=== PATIENT | male | born 1950 | race Caucasian/White ===

== ENCOUNTER 2017-02-09 13:06 | Inpatient (IN) | payer OTHER ==
[~2017-02-09] VITALS: Ht 154.9 cm; Wt 73.5 kg
--- NOTE | 2017-02-09 13:06 | NUR ---
Patient was BIBA and taken to bed 10 via gurney per EMS.
[2017-02-09 13:09] VITALS: BP 111/71
[2017-02-09] MEDS ORDERED: NACL 0.9% 1,000 ML IV ONE (13:12)
--- NOTE | 2017-02-09 13:29 | NUR ---
XRAY AT BEDSIDE.
[2017-02-09 13:45] LABS: MEAN CORPUSCULAR HEMOGLOBIN 32 pg (27-31); MEAN CORPUSCULAR HGB CONC 34 g/dL (33-37); MEAN CORPUSCULAR VOLUME 95 fL (80-94)
[2017-02-09 13:49] LABS: HEMOGLOBIN 14.6 g/dL (12.0-18.0); PLATELET COUNT (AUTO) 111 K/uL (140-450); RED BLOOD CELL COUNT(AUTO) 4.53 MIL/uL (4.20-6.10); RED CELL DISTRIBUTION WIDTH 18.5 % (11.6-13.7); WHITE BLOOD COUNT (AUTO) 7.5 K/uL (4.8-10.8)
--- NOTE | 2017-02-09 13:57 | NUR ---
PATIENT IS A 66 YO MALE BIB EMS FROM HOME FOR ABDOMINAL PAIN, PATIENT HAS A HX OF LIVER CA. HE IS AWAKE AND ALERT ON ARRIVAL. VERY JAUNDICED SKIN AND EYES. IV ESTABLISHED PLACED ON MONITOR SIDE RAILS UP.
[2017-02-09 14:00] LABS: PROTHROMBIN TIME 12.7 secs (10.8-13.4)
[2017-02-09 14:02] LABS: LYMPHOCYTES % (MANUAL) 10 % (20-46); MONOCYTES % (MANUAL) 4 % (5-12)
[2017-02-09] MEDS ORDERED: PIPERACILLIN/TAZOBACTAM 3.375 GM in DEXTROSE 5% 50 ML IV ONE (14:25)
[2017-02-09] MEDS ORDERED: NACL 0.9% 1,500 ML IV ONE (14:25)
[2017-02-09 14:42] LABS: ALBUMIN 1.4 g/dL (3.4-5.0); ANION GAP 11.1 (8-16); CARBON DIOXIDE 28.3 mmol/L (21-32); CREATININE 1.7 mg/dL (0.7-1.3); POTASSIUM 3.4 mmol/L (3.5-5.1); TOTAL BILIRUBIN 29.2 mg/dL (0.0-1.0)
[2017-02-09] MEDS ORDERED: PIPERACILLIN/TAZOBACTAM 3.375 GM VIAL IV ONE (14:43)
[2017-02-09] MEDS ORDERED: OMEP20TC12 PO (14:50)
[2017-02-09] MEDS ORDERED: MIRABULK PO (14:50)
[2017-02-09] MEDS ORDERED: CYAN500T55 SL (14:50)
[2017-02-09] MEDS ORDERED: ACET-2858 PO (14:50)
[2017-02-09] MEDS ORDERED: DOCU-299 PO (14:50)
[2017-02-09] MEDS ORDERED: LACT10SO1 PO (14:50)
[2017-02-09] MEDS ORDERED: LEVOFLOXACIN 750 MG/D5W PREMIX 150 ML IV ONE (14:50)
[2017-02-09] MEDS ORDERED: NACL 0.9% 1,000 ML IV SCH (15:14)
[2017-02-09] MEDS ORDERED: LORazepam 2 MG/ML VIAL IVP PRN (15:15)
[2017-02-09] MEDS ORDERED: ALBUTEROL 0.083% 2.5 MG/3 ML NEBU IH PRN (15:15)
[2017-02-09] MEDS ORDERED: MORPHINE SULFATE 4 MG/ML SYR IVP PRN (15:15)
--- NOTE | 2017-02-09 15:24 | NUR ---
PATIENT ADMITTED TO DR. DESAI BED ASSIGNED DX. PNEUMONIA. BEDSIDE REPORT WITH S BAR GIVEN.
--- NOTE | 2017-02-09 15:30 | NUR ---
ADMITTED FROM ER VIA GURNEY, ACCOMPANIED BY PT. AND PT. DAUGHTER -ZAK. AWAKE, ALERT,AND ORIENTED X2. SPEECH CLEAR. C/O GENERALIZED PAIN 2/10. NO SOB, NOTED. MULTIPLE DRY, HEALED, BLACK SCABS NOTED ON WHOLE BODY AND BUE. PITTING EDEMA 2+ BLE, NOTED. ELEVATED WITH PILLOWS. KEEP COMFORTABLE ON BED. MEDICAL INFORMATION FOR ADMISSION ASSESSMENT WAS GIVEN BY PT. DAUGHTER -ZAK DUE TO PT. VIETNAMESE LANGUAGE. EXPLAINED DIAGNOSIS, PLAN OF CARE, PAIN MANAGEMENT TEACHING, DIET, USE OF CALL LIGHT/BED/TV/BATHROOM. PT. AND PT. FAMILY MEMBERS VERBALIZED UNDERSTANDING. FALL PRECAUTION APPLIED. CALL LIGHT WITHIN REACH.
--- NOTE | 2017-02-09 15:38 | NUR ---
PATIENT TRANSPORTED TO ROOM VIA GURNEY IN STABLE CONDITON WITH ALL BELONGINGS. REPORT GIVEN AT BEDSIDE.
[2017-02-09 15:45] VITALS: BP 110/71
[2017-02-09 16:57] LABS: APPEARANCE,URINE SL CLOUDY (CLEAR); BILIRUBIN,URINE 3+ (NEGATIVE); BLOOD, URINE NEGATIVE (NEGATIVE); LEUKOCYTE ESTERASE ,URINE NEGATIVE (NEGATIVE); NITRITE, URINE NEGATIVE (NEGATIVE); PH,URINE 5.5 (5.0-9.0); UGLUCOSE TRACE (NEGATIVE)
--- NOTE | 2017-02-09 17:00 | NUR ---
CHARGE NURSE BRONWYN LEES -WALKER SPOKE TO DR. DESAI AND INFORMED PF PT. LACTIC ACID 2.5, K 3.4. PER CHARGE NURSE, NO ORDER RECEIVED FROM DR. DESAI AND DR. DESAI STATED THAT HE WILL COME AND SEE PT..
[2017-02-09 17:04] LABS: COLOR,URINE AMBER (YELLOW)
[2017-02-09 17:14] LABS: RBC,URINE NONE SEEN /HPF (0-5); WBC,URINE 0-5 (RARE) /HPF (0-5)
[2017-02-09 17:15] LABS: COARSE GRANULAR CASTS,URINE 0-10 /LPF (None Seen); URINE AMORPHOUS URATE 1+ /HPF (None Seen)
--- NOTE | 2017-02-09 17:20 | NUR ---
INFORMED CHARGE NURSE ABOUT PT. LACTIC ACID 2.3. PER CHARGE NURSE, NO NEED TO CALL MD DUE TO RESULT TRENDING DOWN.
[2017-02-09] MEDS: MORPHINE SULFATE 2 MG/ML SYR IVP PRN (17:33)
[2017-02-09] MEDS ORDERED: PNEUMOCOCCAL VACCINE 23 MCG/0.5 ML VIAL IMVAC SCH (17:35)
[2017-02-09] MEDS ORDERED: INFLUENZA VIRUS VACCINE QUAD 0.5 ML SYR IMVAC SCH (17:40)
--- NOTE | 2017-02-09 19:19 | NUR ---
BEDSIDE REPORT GIVEN TO ROSIBEL COATS. IVF INFUSING WELL. IN STABLE CONDITION.
--- NOTE | 2017-02-09 19:20 | NUR ---
PATIENT IS CURRENTLY RESTING IN BED SLEEPING IVF INFUSING WELL IV SITE CURRENTLY PATENT FAMILY SONS AND DAUGHTER AT BEDSIDE WITH THE PATIENT AT THIS TIME.CALL LIGHT WITHIN REACH WILL CONTINUE TO MONITOR.
--- NOTE | 2017-02-09 19:40 | NUR ---
PATIENT WAS ASSISTED TO THE BATHROOM BY THE SON HIS SON IS VERY INVOLVED WITH HIS FATHER'S CARE AND WILLING TO HELP.PATIENT ASSISTED BACK TO BED THEN I ASKED THE PATIENT IF HE WANTS TO EAT HIS DINNER PATIENT REFUSED.PATIENT STATES,"I DON'T HAVE APPETITE AT THIS TIME MAYBE LATER." FAMILY OFFERED TO BRING FOOD FROM OUTSIDE BUT PATIENT REFUSED. I GAVE THE PATIENT A WARM BLANKET AND GAVE HIM A URINAL HE CAN USE SO HE DOESN'T HAVE TO WALK TO THE BATHROOM SINCE HIS GAIT IS UNSTABLE.PATIENT AND FAMILY VERBALIZE UNDERSTANDING.FALL PRECAUTIONS IMPLEMENTED NEEDS WILL CONTINUE TO BE MET.
[2017-02-09] MEDS: IPRATROPIUM 0.02% 0.5 MG/2.5 ML NEBU IH SCH (19:41)
[2017-02-09 20:00] VITALS: BP 114/73
--- NOTE | 2017-02-09 20:00 | NUR ---
Patient's Plan of Care was discussed and reviewed with METAL FURNITURE PANEL COVERER: ROSIBEL STOLL.
--- NOTE | 2017-02-09 20:05 | NUR ---
SON AND DAUGHTER INFORMED ME THAT THEY HAD ASKED IN THE MORNING FOR PERMISSION TO STAY THE NIGHT WITH THE PATIENT AND WALKER ALEGIRA HAD SAID YES TO THEM.I TOLD THE FAMILY THAT I WILL CHECK WITH CHARGE NURSE WALKER ALEJO IF ITS OK AND THE EMERGENCY MEDICAL TECHNICIAN BASIC WALKER GALLAGHER WAS INFORMED OF THE SITUATION AND HE SAID YES THE SON CAN STAY AND THEY CAN ALTERNATE TAKING CARE OF THE PATIENT. FAMILY VERBALIZES UNDERSTANDING.
--- NOTE | 2017-02-09 20:06 | NUR ---
DOUBLER HELPER WALKRE OLIVIER AWARE THAT FAMILY IS STAYING WITH THE PATIENT ONLY (SONS.)
--- NOTE | 2017-02-09 22:35 | NUR ---
PATIENT INFORMED THAT SPUTUM CULTURE IS NEEDED AND NEEDS TO BE COLLECTED.SON AND DAUGHTER VERBALIZE UNDERSTANDING.WILL CONTINUE TO MONITOR.
--- NOTE | 2017-02-09 22:40 | NUR ---
PATIENT WAS ASSISTED TO THE BATHROOM AND BACK TO BED URINE IS DARK SHANNAN IN COLOR.SON AND DAUGHTER AT BEDSIDE ALSO ASSISTING THE PATIENT.CALL LIGHT WITHIN REACH.
--- NOTE | 2017-02-10 | NUR ---
PATIENT CURRENTLY RESTING IN BED NO COMPLAINS OF PAIN OR NAUSEA OR VOMITING.IVF INFUSING WELL IV SITE PATENT NEEDS MET FAMILY AT BEDSIDE WITH THE PATIENT THEY INSIST THEY WANT TO LOOK AFTER HIM WELL AND HELP THE NURSING STAFF.CALL LIGHT WITHIN REACH WILL CONTINUE TO MONITOR.
[2017-02-10 00:24] VITALS: BP 107/68
[2017-02-10] MEDS: IPRATROPIUM 0.02% 0.5 MG/2.5 ML NEBU IH SCH ×4 (01:00→19:36)
--- NOTE | 2017-02-10 01:33 | NUR ---
PT ASLEEP , NO SOB, AND FAMILY FROM THE ROOM REFUSED PT TO BE WAKE UP, THEY CALL IF NEEDED
[2017-02-10] MEDS: ONDANSETRON 4 MG/2 ML VIAL IVP PRN ×2 (02:35→06:40)
--- NOTE | 2017-02-10 02:35 | NUR ---
PATIENT ASSISTED TO THE BATHROOM WITH THE ASSISTANCE OF THE SON AND MYSELF.PATIENT HAD AN EPISODE OF NAUSEA AND VOMITING VERY LITTLE EMESIS NOTED.WALKER CHILDS WILL MEDICATE THE PATIENT WITH ZOFRAN INDICATED FOR NAUSEA AND VOMITING.PATIENT AWARE VERBALIZES UNDERSTANDING.
--- NOTE | 2017-02-10 04:39 | NUR ---
PATIENT SLEEPING COMFORTABLY IN BED IN NO DISTRESS WILL CONTINUE TO MONITOR.
--- NOTE | 2017-02-10 06:54 | NUR ---
FAMILY AT BEDSIDE
[2017-02-10 07:14] LABS: HEMATOCRIT 40.3 % (36-52); MEAN CORPUSCULAR HEMOGLOBIN 33 pg (27-31); MEAN CORPUSCULAR HGB CONC 35 g/dL (33-37); MEAN CORPUSCULAR VOLUME 96 fL (80-94); PLATELET COUNT (AUTO) 103 K/uL (140-450); RED BLOOD CELL COUNT(AUTO) 4.21 MIL/uL (4.20-6.10); RED CELL DISTRIBUTION WIDTH 18.8 % (11.6-13.7); WHITE BLOOD COUNT (AUTO) 7.5 K/uL (4.8-10.8)
--- NOTE | 2017-02-10 07:15 | NUR ---
PATIENT RESTING IN BED AT THIS TIME FAMILY AT BEDSIDE.PATIENT WAS MEDICATED WITH ZOFRAN IV FOR THE NAUSEA AND NEEDS CONTINUE TO BE MET.CALL LIGHT WITHIN REACH.
--- NOTE | 2017-02-10 07:25 | NUR ---
PATIENT'S DAUGHTER CALLED ME AND TOLD ME THAT WHEN HER FATHER WENT TO THE BATHROOM HE POOP BLOOD BUT SHE SAID SHE FLUSHED IT.I TOLD HER I WILL ENDORSE TO INCOMING SHIFT NURSE BUT I TOLD HER NOT TO FLUSH NEXT TIME HE GOES TO THE BATHROOM SO WE CAN SEE.DAUGHTER AND SON VERBALIZED UNDERSTANDING.REPORT ENDORSED TO MAYTE MATUTE LVN HE WILL RESUME CARE OF THE PATIENT.
--- NOTE | 2017-02-10 07:26 | NUR ---
ASSUMED CONTINUITY OF CARE. NO SIGNS AND SYMPTOMS OF ACUTE DISTRESS NOTED. INITIAL ASSESSMENT DONE. PT. DAUGHTER -ZAK ON BEDSIDE. EXPLAINED DIAGNOSIS, PLAN OF CARE, PAIN MANAGEMENT TEACHING, USE OF CALL LIGHT/BED/TV/BATHROOM. VERBALIZED UNDERSTANDING. FALL PRECAUTION APPLIED. CALL LIGHT WITHIN REACH.
[2017-02-10 07:40] LABS: ALBUMIN 1.3 g/dL (3.4-5.0); ANION GAP 14.1 (8-16); CARBON DIOXIDE 23.9 mmol/L (21-32); CREATININE 1.5 mg/dL (0.7-1.3); MAGNESIUM 2.1 mg/dL (1.8-2.4); PHOSPHORUS 3.7 mg/dL (2.5-4.9); TOTAL BILIRUBIN 26.6 mg/dL (0.0-1.0)
--- NOTE | 2017-02-10 07:45 | NUR ---
DR. LLOYD GAINES, REVIEWED PT. CHART, INFORMED OF PT. K 3.0, LACTIC ACID 2.3, AND PT. POOR APPETITE.
[2017-02-10 07:55] LABS: LYMPHOCYTES % (MANUAL) 13 % (20-46)
[2017-02-10 07:56] LABS: MONOCYTES % (MANUAL) 7 % (5-12)
[2017-02-10 08:00] VITALS: BP 116/71
--- NOTE | 2017-02-10 08:00 | NUR ---
Patient's Plan of Care was discussed and reviewed with ORACLE DATA WAREHOUSE DEVELOPER: CORA
--- NOTE | 2017-02-10 08:40 | NUR ---
DR. DESAI CAME, SPOKE TO PT. AND PT. DAUGHTER -ZAK AT BEDSIDE.
--- NOTE | 2017-02-10 09:25 | NUR ---
PATIENT HAS BEEN SCREENED AND CATEGORIZED HIGH NUTRITION RISK. PATIENT WILL BE SEEN WITHIN 1-2 DAYS OF ADMISSION. 02/10/17-02/11/[address] Addendum: 02/11/17 at [address] PATIENT HAS BEEN RESCREENED AND CATEGORIZED MODERATE NUTRITION RISK. PATIENT WILL BE SEEN WITHIN 3-5 DAYS OF ADMISSION. PLEASE CONSULT SHABBIR IF PT NEEDS TO BE SEEN SOONER. 02/12/17 - 02/14/[address]
[2017-02-10] MEDS: POTASSIUM CHL 40 MEQ/ D5-1/2NS 1,000 ML IV SCH ×2 (09:28→19:05)
[2017-02-10] MEDS: MORPHINE SULFATE 2 MG/ML SYR IVP PRN (10:13)
[2017-02-10 12:00] VITALS: BP 115/71
--- NOTE | 2017-02-10 12:00 | NUR ---
VITALS SIGNS STABLE. NO C/O PAIN. WILL MONITOR.
--- NOTE | 2017-02-10 14:49 | NUR ---
SPOKE TO CORDELIA FROM [facility] AND GAVE INFORMATION OF THE PATIENT. SHE SAID SHE WILL SEND A NURSE IN 2 HOURS TO SEE THE PATIENT.
--- NOTE | 2017-02-10 15:19 | NUR ---
SPOKE WITH TANYA FROM [facility] AND FAXED THE ORDER AND H&P TO .
[2017-02-10 16:00] VITALS: BP 127/72
[2017-02-10] MEDS ORDERED: MORPHINE SULFATE ORAL SOLN 2 MG/ML UDC PO PRN (16:00)
--- NOTE | 2017-02-10 16:09 | NUR ---
TANYA FROM HOSPICE SAID THAT SHE SPOKE TO DAUGHTER ZAK AND THEY WANT PATIENT TO GO TO SNF, TANYA SAID SHE WILL FOLLOW UP [facility].
--- NOTE | 2017-02-10 19:20 | NUR ---
BEDSIDE REPORT GIVEN TO ALFREDO BRICENO. IVF INFUSING WELL. IN STABLE CONDITION.
--- NOTE | 2017-02-10 19:21 | NUR ---
RECEIVED REPORT FROM AM NURSE. PT IS SLEEPING, EASY TO AROUSE. FAMILY AT THE BEDSIDE. ON ROOM AIR. RESPIRATIONS EVEN AND UNLABORED. NO SIGNS OF ACUTE DISTRESS NOTED. IV ACCESS INTACT, PATENT AND ASYMPTOMATIC. DARK SCABS NOTED ALL OVER BODY. ALL SAFETY MEASURES IN PLACE. BED IN LOW POSITION, BILATERAL HALF SIDE RAILS UP, CALL LIGHT WITHIN REACH, WILL CONTINUE TO MONITOR.
[2017-02-10 20:00] VITALS: BP 127/79
--- NOTE | 2017-02-10 23:30 | NUR ---
PT IS SLEEPING, AROUSABLE TO VOICE. NO SIGNS OF ACUTE DISTRESS NOTED. FAMILY AT THE BEDSIDE. BED IN LOW POSITION, BILATERAL HALF SIDE RAILS UP, CALL LIGHT WITHIN REACH, WILL CONTINUE TO MONITOR.
[2017-02-11] VITALS: BP 127/79
[2017-02-11] MEDS: IPRATROPIUM 0.02% 0.5 MG/2.5 ML NEBU IH SCH ×4 (01:07→19:17)
--- NOTE | 2017-02-11 02:14 | NUR ---
PT IS SLEEPING, AROUSABLE TO VOICE. NO SIGNS OF ACUTE DISTRESS NOTED. RESPIRATIONS EVEN AND UNLABORED. FAMILY AT THE BEDSIDE. BED IN LOW POSITION, BILATERAL HALF SIDE RAILS UP, CALL LIGHT WITHIN REACH, WILL CONTINUE TO MONITOR.
--- NOTE | 2017-02-11 04:50 | NUR ---
ENDORSED PT TO CHERI MCGUIRE RN. PT IS IN STABLE CONDITION.
--- NOTE | 2017-02-11 05:00 | NUR ---
RECEIVED PT FROM ALFREDO, PT SLEEPING ,NO SIGNS OF RESPIRATORY DISTRESS.
--- NOTE | 2017-02-11 06:14 | NUR ---
PT RESTING QUIETLY, NO SIGNS OF DISTRESS. FAMILY AT THE BEDSIDE ALSO ASLEEP.
--- NOTE | 2017-02-11 07:10 | NUR ---
ENDORSEMENT RECEIVED FROM RADIO INTERFERENCE TROUBLE SHOOTER NURSE. PATIENT'S RESPIRATION EVEN, UNLABOR. SKIN DRY AND WARM. CALL LIGHT WITHIN REACH. WILL CONTINUE TO MONITOR
[2017-02-11 08:00] VITALS: BP 115/72
--- NOTE | 2017-02-11 08:00 | NUR ---
PATIENT AWAKE, ALERT, ORIENTED X4. PUPILS EQUAL REACTIVE TO LIGHT. RESPIRATION EVEN, LUNGS SOUND CLEAR THROUGHOUT. CARDIAC S1/S2 PRESENT. BOWEL SOUND ACTIVE 4 QUADRANTS. SKIN DRY AND WARM. IV ON RIGHT AC 20G INFUSING D51/2NS AND 40MEQ POTASSIUM. FAMILY AT BEDSIDE. DENIED PAIN AT THIS TIME. CALL LIGHT WITHIN REACH. WILL CONTINUE TO MONITOR
--- NOTE | 2017-02-11 09:17 | NUR ---
PT C/O GENERALIZED ABD PAIN INTERMITTENTLY WITH MOVEMENT, PRN P MORPHINE GIVEN PER ORDER, FAMILY AT BEDSIDE, WILL CONTINUE TO MONITOR.
[2017-02-11] MEDS: POTASSIUM CHL 40 MEQ/ D5-1/2NS 1,000 ML IV SCH ×3 (09:24→21:23)
[2017-02-11] MEDS ORDERED: ONDA4SOL PO (09:59)
[2017-02-11] MEDS ORDERED: MORPHINE SULFATE ORAL SOLN 2 MG/ML UDC PO PRN (10:00)
[2017-02-11] MEDS ORDERED: LEVOFLOXACIN 500 MG/D5W PREMIX 100 ML IV SCH (10:00)
[2017-02-11] MEDS ORDERED: MORP10SO PO (10:06)
--- NOTE | 2017-02-11 10:29 | NUR ---
PATIENT IS SLEEPING COMFORTABLY, EASILY AROUSABLE BY NAME. RESPIRATION EVEN. DENIED PAIN AT THIS TIME. FAMILY AT BEDSIDE. MED WAS GIVEN PER ORDER. CALL LIGHT WITHIN REACH. WILL CONTINUE TO MONITOR
--- NOTE | 2017-02-11 11:29 | NUR ---
SPOKE WITH TANYA FROM [facility]. SHE SAID THE FAMILY WANTS SNF ON HOSPICE. SHE SAID DUDLEY IS HANDLING THIS PATIENT AND SHE WILL CALL ME.
--- NOTE | 2017-02-11 12:10 | NUR ---
PATIENT IS AWAKE, ALERT. RESPIRATION EVEN, UNLABOR. NO DISTRESS NOTED. DENIED PAIN AT THIS TIME. HOSPICE REP AND FAMILY IS AT BEDSIDE. CALL LIGHT WITHIN REACH. WILL CONTINUE TO MONITOR
--- NOTE | 2017-02-11 14:00 | NUR ---
PATIENT IS AWAKE, COMPLAINED OF NAUSEA. PATIENT HAD 3 EMESIS EPISODE PRIOR PER FAMILY MEMBER. WILL MEDICATE PER ORDER
[2017-02-11] MEDS: ONDANSETRON 4 MG/2 ML VIAL IVP PRN ×2 (14:07→19:02)
--- NOTE | 2017-02-11 14:39 | NUR ---
CALLED [facility] LEFT MESSAGE FOR RADHA, NO CALL BACK. I CALLED [facility] AGAIN AGAIN AND SPOKE WITH TIFFANIE, SHE SAID THE CM WILL BE RADHA, , BUT TO FAX REVIEW TO [phone] FAXED INITIAL REVIEW.
[2017-02-11 16:00] VITALS: BP 103/68
--- NOTE | 2017-02-11 16:20 | NUR ---
PATIENT IS ASLEEP COMFORTABLY. RESPIRATION EVEN, UNLABOR. NO DISTRESS NOTED. FAMILY AT BEDSIDE. CALL LIGHT WITHIN REACH. WILL CONTINUE TO MONITOR
--- NOTE | 2017-02-11 17:00 | NUR ---
CALLED AND NOTIFIED REGARDING THE PATIENT'S FAMILY'S DECISION TO TAKE HIM HOME TOMORROW WITH HOSPICE
--- NOTE | 2017-02-11 17:05 | NUR ---
PER PATIENT'S DAUGHTER REQUEST, PATIENT WILL BE GOING HOME WITH HOSPICE ON 02/12/17. TALKED TO DUDLEY, THE AGRICULTURAL ENGINEERING TECHNOLOGIST, SHE REQUESTED TO HAVE PATIENT TO BE DISCHARGED TOMORROW BECAUSE THE HOUSE NEEDS TO BE CHECKED FOR SAFETY. CALLED AND LEFT VOICEMAIL TO ESCOBAR, TICKET CHOPPER ASSEMBLER, TO FOLLOW UP WITH THE PATIENT'S FAMILY AND ROSSANA.
--- NOTE | 2017-02-11 19:00 | NUR ---
PATIENT AWAKE, ALERT. RESPIRATION EVEN, UNLABOR. MED WAS GIVEN FOR NAUSEA PER ORDER. PATIENT HAD EMESIS X1.PATIENT IS STABLE AT THIS TIME. CALL LIGHT WITHIN REACH. WILL CONTINUE TO MONITOR
--- NOTE | 2017-02-11 19:20 | NUR ---
ENDORSEMENT GIVEN TO THE INTERNATIONAL BROADCAST MUSIC LIBRARIAN NURSE. PATIENT IS STABLE AT THIS TIME.
--- NOTE | 2017-02-11 19:21 | NUR ---
RECEIVED REPORT FROM DAY NURSE, PT IS IN STABLE CONDITION. PT IS AAOX4, PT IS ON RA. IV TO R AC 20G, PATENT AND INTACT. PT HAS MULTIPLE DRY HEALED BLACK SCABS TO UPPER BODY AND BUE. RESPIRATIONS ARE EVEN AND UNLABORED. INITIAL ASSESSMENT COMPLETED. PLAN OF CARE DISCUSSED WITH PT AND FAMILY AT THE BEDSIDE, VERBALIZED UNDERSTANDING. ALL SAFETY PRECAUTIONS MET, CALL LIGHT WITHIN REACH, WILL CONTINUE TO MONITOR
--- NOTE | 2017-02-11 20:30 | NUR ---
PAGED DR. KHAN FOR ORDERS FOR PAIN MEDICATION
--- NOTE | 2017-02-11 20:36 | NUR ---
DR. KHAN PAGED BACK, WILL CARRY OUT NEW ORDERS
--- NOTE | 2017-02-11 20:55 | NUR ---
HEPARIN NON ADMIN AT THIS TIME, PATIENTS PLATELETS 103
[2017-02-11] MEDS ORDERED: MORPHINE SULFATE 2 MG/ML SYR IVP PRN (21:15)
[2017-02-12] VITALS: BP 113/72
[2017-02-12] MEDS: ONDANSETRON 4 MG/2 ML VIAL IVP PRN ×2 (00:20→06:02)
[2017-02-12] MEDS: IPRATROPIUM 0.02% 0.5 MG/2.5 ML NEBU IH SCH ×2 (01:00→07:55)
--- NOTE | 2017-02-12 01:21 | NUR ---
FAMILY REFUSED HHNTX FOR PATIENT. PT WAS NAUSEAS. BS ARE CLEAR. SATS ROOM AIR 96% WILL CALL IF THEY FEEL HE NEEDS ONE
--- NOTE | 2017-02-12 07:27 | NUR ---
REPORT GIVEN TO DAY NURSE FOR CONTINUITY OF CARE, PT IN STABLE CONDITION. NO S/S OF DISTRESS NOTED.
--- NOTE | 2017-02-12 07:30 | NUR ---
ENDORSEMENT RECEIVED FROM MANAGER FREELANCE NURSE. PATIENT'S RESPIRATION EVEN, UNLABOR, SKIN DRY AND WARM. CALL LIGHT WITHIN REACH. WILL CONTINUE TO MONITOR
--- NOTE | 2017-02-12 07:55 | NUR ---
WENT INTO PT ROOM, FAMILY AT BEDSIDE AND REQUESTED NOT TO GIVE TX OR DO MY ASSESSMENT AT THIS TIME SO PT CAN STAY ASLEEP. PT APPEARED COMFORTABLE AT THIS TIME WITHOUT DISTRESS NOTED. WILL FOLLOW UP AT A LATER TIME.
[2017-02-12 08:00] VITALS: BP 106/79
[2017-02-12] MEDS: POTASSIUM CHL 40 MEQ/ D5-1/2NS 1,000 ML IV SCH (08:59)
[2017-02-12] MEDS ORDERED: LEVOFLOXACIN 250 MG/D5 PREMIX 50 ML IV SCH (09:00)
--- NOTE | 2017-02-12 10:15 | NUR ---
PATIENT IS AWAKE, ALERT. RESPIRATION EVEN, UNLABOR. NO DISTRESS NOTED.ADMINISTRATIVE OFFICE ASSISTANT, HOSPICE REP, AND FAMILY ARE AT BEDSIDE. CALL LIGHT WITHIN REACH. WILL CONTINUE TO MONITOR
--- NOTE | 2017-02-12 12:29 | NUR ---
HAD RECEIVED A CALL THAT THE DAUGHTER LORRIE WANTED TO SPEAK WITH ME ABOUT HOSPICE. SHE SAID THEY WERE THINKING NOW OF THE PATIENT GOING TO THE SISTER'S HOUSE ON HOSPICE IN [place] AND SHE WAS TOLD THAT [facility] DOESN'T SERVICE THAT AREA. ROSSANA FROM [facility] AND I WENT AND SPOKE WITH THE DAUGHTER. ROSSANA SAID SHE KNOWS OF A HOSPICE THAT GOES TO [facility], [facility]. ROSSANA SPOKE WITH ENRRIQUE FROM [facility], , AND HE AGREED TO COME IN TO SPEAK WITH THE FAMILY. HE CAME HERE AND NEVER WAS ABLE TO SPEAK WITH THE DAUGHTER, SINCE SHE DECIDED NO HOSPICE. GAMA WEAVER FROM [facility] ALSO HERE TO SPEAK WITH THE FAMILY. HE SAID HE DID OUT PATIENT FOLLOW UP FOR [facility]. PHONE C [phone] THE DAUGHTER, LORRIE, SPOKE WITH OTHER FAMILY MEMBERS AND THEY DECIDED NOT TO SIGN UP FOR HOSPICE AND JUST WANT TO TAKE HIM HOME. I INFORMED AVE CARDOSOREAL ESTATE ADMINISTRATIVE ASSISTANT NURSE. I CALLED SOHAN FROM [facility] AND INFORMED HIM THAT THE PATIENT IS GOING HOME, NO HOSPICE. HE SAID HE WOULD INFORM THE OUT PATIENT DIESEL STATIONARY ENGINEER FOR FOLLOW UP. I DID TELL THE DAUGHTER, LORRIE, TO CALL HIS PCP FOR FOLLOW UP APPOINTMENT.
--- NOTE | 2017-02-12 12:30 | NUR ---
DISCHARGE INSTRUCTION WAS GIVEN TO THE FAMILY. IV WAS REMOVED WITH CATHETER TIP INTACT. ID BAND WAS REMOVED. PATIENT IS STABLE AT THIS TIME. PATIENT WAS ESCORTED OUT BY RN TO FRONT LOBBY.
--- NOTE | 2017-02-12 13:10 | NUR ---
FAXED CONCURRENT REVIEW TO [facility] [phone]. RADHA, PHONE [phone] I SPOKE WITH RADHA AND TOLD HER THAT PATIENT WAS GOING HOME BUT NO ON HOSPICE. I TOLD HER I SPOKE WITH GAMA FROM [facility] OUT PATIENT FOLLOW UP. I TOLD HER THAT THE PATIENT DID NOT GO HOME WITH ANY PRESCRIPTION FOR PAIN MED OR NAUSEA. SHE SAID TO GET ORDER FOR HOME HEALTH FOR SAFETY ADRIANNA. SENT ORDER TO HER.
--- NOTE | 2017-02-12 16:31 | NUR ---
LATE ENTRY. CALLED DAUGHTER LORRIE AND INFORMED HER THAT [facility] WILL BE SENDING SOMEONE FROM HOME HEALTH. I ASKED HER IF HER FATHER HAD MEDICATION FOR PAIN, AND SHE THOUGHT HE DID. I TOLD HER IF HE NEEDED SOMETHING TO CALL HER PCP OR DR. DESAI TO HAVE A PRESCRIPTION CALLED TO THEIR PHARMACY.
== END 2017-02-12 12:30 | disposition home health service (06) | DRG 181 ==
LOC: MED 13:06 → MTU 15:26
PROVIDERS: ADMIT Hospitalist; ATTEND Hospitalist
DX: C78.00 Secondary malignant neoplasm of unspecified lung (principal); N17.9 Acute kidney failure, unspecified; C22.8 Malignant neoplasm of liver, primary, unspecified as to type; E44.0 Moderate protein-calorie malnutrition; K74.60 Unspecified cirrhosis of liver; K72.90 Hepatic failure, unspecified without coma; K76.9 Liver disease, unspecified; R62.7 Adult failure to thrive; N18.9 Chronic kidney disease, unspecified; Z79.899 Other long term (current) drug therapy
CPT/HCPCS: 36415; 71010; 76700; 80053; 81001; 82140; 83605; 83690; 83735; 83880; 84100; 84484; 85025; 85610; 87040; 87081; 87086; 93005; 94640; 96361; 96365; 96375; 99285; J1644; J1956; J2270; J2405; J2543; J7030; J7060; J7613; J7644; Q0092